=== PATIENT | female | born 1975 | race Caucasian/White ===

== ENCOUNTER 2018-09-22 06:18 | Day surgery (SDC) | payer OTHER, SELFPAY ==
[2018-09-22] MEDS: LACTATED RINGERS 1,000 ML 42 ML IV (07:25)
--- NOTE | 2018-09-22 07:34 | PM.PREOP ---
Pre-operative Note Interval Note History & Physical reviewed/Exam performed by Physician: Yes Changes to H&P: No ASA Class (for procedural sedation): I
[2018-09-22] MEDS: CEFOTETAN 2 GM/50 ML PIGGYBACK IV (07:50)
[2018-09-22 07:55] VITALS: BP 113/71; PULSE 80; RESP 16; TEMP 36.6; O2SAT 98; BMI 28.3
--- NOTE | 2018-09-22 08:05 | SUR.OPER ---
Lithotomy on padded OR bed, head on pillow, arms secured on padded arm boards at <90 degrees abduction. Legs secured in padded yellow fins stirrups.
[2018-09-22] MEDS: BUPIVACAINE 0.5% W/ EPI (PF) VIAL 30 ML INJ (08:13)
--- NOTE | 2018-09-22 08:23 | PM.GYNOP.1 ---
Operative Date/Time/Diagnoses Date of procedure: 09/22/18 Time of procedure: 08:24 Pre-op diagnosis: gartners duct cyst Post-op diagnosis: other (vaginal inclusion cyst) Procedure: Procedures Operation Date: 08/25/18 15:30 <No data on this case meets the specified criteria> Operation Date: 09/22/18 07:45 Actual Procedures Side Surgeon p Cyst Removal Vaginal Right Abdulaziz Cleaning MD Indications: vaginal cyst symptomatic Surgeon: Abdulaziz Cleaning Anesthesia Type: Sedation and Local Operative Notes Findings: midline 4x4 inclusion cyst Closure Type: primary Specimen(s): none Estimated blood loss (mL): 0 Blood products transfused: none Procedure in detail: the patient was placed supine on the operating table and examed under sedation. She appeared to have a more central cyst then previously recognized. the patient was then draped and prepared. cephalad and caudad portions of the vagina were grasped above and below the cysti and the area injected with 1/2% marcaine and 1:200,000 epi. A sharp knife incision was made on the anterior vaginal wall and the cyst open. There as approximately 30 cc of sebaceous material. Lateral edges of cyst grasped and the cyst membrane removed and the area fulgerated. With a finger in the rectum the surround vagina was excised. Bleeding was minimal. The incision was then closed with 2 O chromic using an interrupted technique. At the end fo the procedure the patient had tolerated all well and was taken to the recovery room Complications: none Post-operative Condition: stable Disposition: PACU Plan for aftercare: discharge to home
[2018-09-22 08:34] VITALS: BP 107/64; PULSE 87; RESP 16; TEMP 36.4; O2SAT 95
--- NOTE | 2018-09-22 09:07 | SUR.PHASEII ---
stable pt, by passed pacu, pt awake on arrival. dr barron to bedside- spoke to both opt and , all voiced an understanding.pt dressed when ready and left in stable condition.
== END 2018-09-22 09:06 | disposition home or self-care (01) ==
PROVIDERS: PCP Psychiatry & Neurology Forensic Psychiatry
PROC: (CPT 57135; principal; 2018-09-22 07:45)
DX: Q52.4 Other congenital malformations of vagina (principal)
CPT/HCPCS: 57135; J1100; J1885; J2250; J2704

== ENCOUNTER → 2020-07-15 09:23 | Outpatient (CLI) | payer OTHER, SELFPAY ==
--- NOTE | 2020-07-15 09:24 | DI.US.S_ITS ---
PROCEDURE: US PELVIC COMPLETE INDICATIONS: PAIN TECHNIQUE: Real-time scanning was performed of the pelvic organs, with image documentation. Additional endovaginal scanning was necessary due to incomplete visualization of the adnexal and endometrial structures by transabdominal scanning. COMPARISON: [facility], US, US PELVIC COMPLETE, 03/06/2020, 11:58. FINDINGS: Transabdominal scanning: Limited scanning through the kidneys shows no hydronephrosis. No pathologic free abdominal or pelvic fluid. No appendix (either normal or abnormal) is identified on this study. Endovaginal scanning: Uterus: Uterus is normal in size at 10.6 x 4.9 x 6.4 cm. The endometrium measures 4 mm in combined thickness. An IUD is seen at its expected location. Ovaries: The right ovary measures 2.3 x 2.2 x 2.6 cm. The left ovary measures 1.8 x 2.3 x 1.8 cm. The ovaries have a normal sonographic appearance, and demonstrates simple appearing cystic follicles involving each ovary. No adnexal masses are seen. IMPRESSION: Normal pelvic ultrasound, without an imaging explanation found for the patient's presenting history of pain. An IUD is seen at its expected location. Dictated by: Yvan Smith M.D. on 07/15/2020 at 12:25 Approved by: Yvan Smith M.D. on 07/15/2020 at 12:26
[2020-07-15 11:35] LABS: Add Manual Diff / Slide Review NO; Basophils Absolute Auto 0 /uL (0-100); Basophils Percent Auto 0.2 % (0-2); Eosinophils Absolute Auto 100 /uL (0-450); Eosinophils Percent Auto 1.2 % (2-4); Hematocrit 41.2 % (36-46); Hemoglobin 14.1 g/dL (12.0-16.0); Lymphocytes Absolute Auto 2300 /uL (1100-4500); Lymphocytes Percent Auto 25.2 % (25-40); Mean Corpuscular HGB Conc 34.1 % (30-36); Mean Corpuscular Hemoglobin 29.8 PG (26-34); Mean Corpuscular Volume 87.3 fL (80-100); Monocytes Absolute Auto 600 /uL (0-900); Monocytes Percent Auto 6.6 % (3-14); Neutrophils Absolute Auto 6100 /uL (1500-7000); Neutrophils Percent Auto 66.8 % (50-75); Platelet Count 350 X10^3/uL (150-400); Red Blood Cell Count 4.72 X10^6/uL (4.0-5.2); Red Cell Distribution Width 13.3 % (11.6-14.8); White Blood Cell Count 9.1 X10^3/uL (4.5-11.0)
== END ==
PROVIDERS: PCP Psychiatry & Neurology Forensic Psychiatry; Referring Provider Psychiatry & Neurology Forensic Psychiatry; Visit Provider Specialist
DX: N83.201 Unspecified ovarian cyst, right side (principal); N83.202 Unspecified ovarian cyst, left side; Z97.5 Presence of (intrauterine) contraceptive device
CPT/HCPCS: 36415; 76830; 76856; 85025